=== PATIENT | male | born 1950 | race Caucasian/White ===

== ENCOUNTER 2016-06-12 08:12 | Emergency (ER) | payer OTHER ==
[~2016-06-12] VITALS: Ht 182.9 cm; Wt 131.8 kg
[~2016-06-12 08:12] MED LIST: ALBU8.5H4 IH; AMLO10TA3 PO; CHOL100094 PO; EPIN0.3P2 IJ; FENO160T14 PO; FUR20 PO; IBUP200C PO; LOSA100T29 PO; MULT-1018 PO; OMEG1CAP5 PO; PRAZ1CAP2 PO; PRE20 PO; ZIT250 PO
--- NOTE | 2016-06-12 08:22 | ED.REPORT ---
HPI-Stroke / CVA Jun 12, 2016 ED Provider: Aneudy York MD Pt is a 66 year old male with a hx of HTN, hyperlipidemia, and DM presenting to the ED complaining of sudden onset vision changes and confusion at 0755. 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 When he went to type the names into his computer, they "weren't coming up right." Associated symptoms include diaphoresis, speech changes, chills. He had clear speech but had trouble finding words. Denies numbness, weakness, change in appetite. Pt states that he feels overwhelmed due to being in the ER but is not in any pain. Pt has recent hx of diverticulitis and is on Cipro and Flagyl since 6 days ago. Nursing Notes Stated Complaint: DISORIENTED Chief Complaint: Neuro Symptoms/ Deficits Nursing Notes Reviewed: Yes ([employer], Reflect Systemss not reconciled - on cipro/flagyl) Allergies: Coded Allergies: Potassium Clavulanate (Verified Allergy, Severe, HIVES, 06/12/16) Sulfa (Sulfonamide Antibiotics) (Verified Allergy, Severe, hives, 06/12/16) amoxicillin trihydrate (Verified Allergy, Severe, HIVES, 06/12/16) Cephalosporins (Verified Allergy, Intermediate, HIVES, 06/12/16) clonidine (Verified Allergy, Mild, DIZZINESS, 06/12/16) Penicillins (Verified Allergy, Unknown, Hives, 06/12/16) Scheduled Amlodipine (Amlodipine) 10 Mg Tablet 10 MG PO DAILY (Reported) Ciprofloxacin (Cipro) 500 Mg Tablet 0 PO BID (Reported) Fenofibrate (Fenofibrate) 160 Mg Tablet 160 MG PO DAILY (Reported) Losartan Potassium (Losartan Potassium) 100 Mg Tablet 100 MG PO DAILY (Reported ) Metronidazole (Flagyl) 500 Mg Tablet 0 PO Q8H (Reported) Scheduled PRN Albuterol HFA (Albuterol HFA) 8.5 Gm Hfa.aer.ad 1 PUFF IH Q4 PRN PRN asthma ( Reported) Epinephrine (Epipen 2-Junior) 0.3 Mg/0.3 Ml Auto.injct 0.3 MG IJ PRN For Anaphyllaxis (Reported) Miscellaneous Medications [place]-3 Fatty Acids/Fish Oil (Fish Oil 1,000 mg Capsule) 1 Each Capsule 1 EACH PO (Reported) General Time Seen by Provider: 08:16 Chief Complaint Vision, reduced, Confusion Hx Obtained From: Patient Arrived By: Walk-in Time last known well 0755 Sudden in Onset?: Yes Progression Since Onset: Resolved Severity: Current: No pain currently Severity: Maximum: No pain Recent Healthcare: No recent hospitalization, Recent doctor visit Similar Sx Previous: No Risk Factors NIH Stroke Scale Level of Consciousness: Alert and responsive (0) Ask Month & Age: Both questions right (0) 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 Nguyen Echo 04/2014: Interpretation Summary Normal sinus rhythm. Normal LV size and wall thickness. There is distal septal, mid-inferoseptal and distal inferior hypokinesis. EF is 60-65%. Stage I diastolic dysfunction. No significant valvular abnormalities. No prior study available for comparison. Past Medical History Hemmorhoids Hx of kidney stones Diet-controlled diabetes, not on any medications Reports: Asthma, Hyperlipidemia, Hypertension Past Surgical History Lithotripsy for kidney stones Family History Mother of stroke at 89 Smoking History Former Smoker Social History Other Social History: Ambulatory Status Independent Review of Systems Constitutional: Reports: Chills Skin: Reports Diaphoresis Neurologic: Reports: Confusion, Vision change, Denies: Numbness, Slurred speech, Weakness Complete sys rev & neg: except as marked. Physical Exam Initial Vital Signs Vital Signs (First) Date Time Temp Pulse Resp B/P Pulse Ox O2 Delivery O2 Flow Rate FiO2 06/12/16 08:23 35.6 80 14 185/79 96 Room Air Initial VS: Reviewed, Vital signs abnormal (HTN (+ tPA exclusion on initial BP) ) ENT: Mucous membranes moist, Conjunctiva normal, No scleral icterus Abdomen / GI: Soft, Non-tender, No guarding, No rebound, No distention Extremities: Vascular intact, Neuro intact, No swelling, No tenderness Skin: Warm, Dry, No cyanosis Psychiatric: Mood/affect normal, Behavior normal, Normal thought content General/Constitutional: Awake, Alert, No acute distress, Well appearing Head / Eyes: Atraumatic, Normocephalic, PERRL, EOMI, No nystagmus Neck: Atraumatic, Supple, Full range of motion Respiratory / Chest: Breath sounds NL, Breath sounds = bilat, No respiratory distress, No rales, No rhonchi, No wheezing Cardiovascular: Heart rate NL, Regular rhythm, Heart sounds NL, No murmurs, Peripheral circulation NL Neurologic: Oriented X3, Speech NL, No motor deficits, No sensory deficits, CN II - XII intact, Reflexes equal bilat, Cerebellar NL, Memory NL, Gait NL Interpretation & Diagnostics Interpretation & Diagnostics: MRI STROKE PROTOCOL: IMPRESSION: BRAIN MRI: 1. No acute hemorrhage or ischemia of the brain. 2. Mild chronic small vessel ischemic changes. 3. Moderate sinus disease. BRAIN MR ANGIOGRAM: The arteries of the [place] of Mahmood are patent and within normal limits without aneurysm or occlusion. NECK MR ANGIOGRAM: No significant atherosclerosis is evident involving the carotid arteries or vertebral arteries. However, the left vertebral artery origin is not adequately seen. There are no occlusions or high-grade areas of narrowing. The estimate of stenosis included in the report of the imaging study was calculated using the NASCET method Dictated by: Matheus Dugan M.D. on 06/12/2016 at 11:47 Lab Results Interpretation Result Diagram: 06/12/16 0819 06/12/16 0819 Test 06/12/16 08:19 06/12/16 10:42 White Blood Count 2.4th/mm3 (3.8-10.1) Red Blood Count 3.87mil/mm3 (4.40-5.80) Hemoglobin 12.1g/dL (13.8-17.2) Hematocrit 35.4% (41.0-50.0) Mean Corpuscular Volume 91.5fL (81-100) Mean Corpuscular Hemoglobin 31.3pg (27.0-35.0) Mean Corpuscular Hemoglobin Concent 34.2% (32.0-37.0) Red Cell Distribution Width 13.5% (12.3-15.4) Platelet Count 150bil/L (150-400) Neutrophils (%) (Auto) 52.0% (40-74) Lymphocytes (%) (Auto) 26.4% (14-46) Monocytes (%) (Auto) 16.5% (4-12) Eosinophils (%) (Auto) 3.7% (0-5) Basophils (%) (Auto) 0.8% (0-3) Prothrombin Time 11.7sec (8.1-12.5) Prothromb Time International Ratio 1.09ratio Activated Partial Thromboplast Time 27.8sec (22.8-33.0) Sodium Level 139mEq/L (134-144) Potassium Level 3.9mEq/L (3.5-5.2) Chloride Level 101mEq/L (97-108) Carbon Dioxide Level 21mmol/L (18-29) Blood Urea Nitrogen 13mg/dL (8-27) Creatinine 0.84mg/dL (0.76-1.27) Estimat Glomerular Filtration Rate 97mL/min (>59) Glucose Level 187mg/dL (60-99) Calcium Level 9.7mg/dL (8.5-10.1) Total Bilirubin 0.9mg/dL (0.0-1.2) Aspartate Amino Transf (AST/SGOT) 53U/L (0-50) Alanine Aminotransferase (ALT/SGPT) 51U/L (0-44) Alkaline Phosphatase 89U/L (25-160) Troponin T < 0.010ug/L (0.0-0.011) Total Protein 7.4g/dL (6.4-8.4) Albumin 4.2g/dL (3.4-5.0) Urine Color Yellow (YELLOW) Urine Appearance Clear (CLEAR,HAZY) Urine pH 5.5 (5.0-8.0) Urine Specific [place] 1.020 (1.003-1.035) Urine Protein Negativemg/dL (NEG,TRACE) Urine Glucose (UA) Negativemg/dL (NEGATIVE) Urine Ketones Negativemg/dL (NEGATIVE) Urine Occult Blood Negative (NEGATIVE) Urine Nitrite Negative (NEGATIVE) Urine Bilirubin Negative (NEGATIVE) Urine Urobilinogen Normalmg/dL (NORMAL) Urine Leukocyte Esterase Negative (NEGATIVE) Urine RBC 0-2/hpf (0-2) Urine WBC 0-5/hpf (0-5) Urine Epithelial Cells Occasional/hpf (NONE-MOD) Urine Crystals None seen (NONE SEEN) Urine Bacteria Few/hpf (NONE-FEW) Urine Hyaline Casts Rare/lpf (NONE) Urine Granular Casts None seen (NONE SEEN) Urine Waxy Casts None seen (NONE SEEN) Urine Red Blood Cell Casts None seen (NONE SEEN) Urine White Blood Cell Casts None seen (NONE SEEN) Urine Mucus Present (None Seen) Urine Trichomonas None seen (NONE SEEN) Urine Yeast None (NONE SEEN) Urinalysis Comment None Urine Culture Reflexed Not indicated Lab Results Interpretation: CBC nonspecific leukopenia CMP normal ECG Interpretation ECG Interpretation: No clear acute ischemic changes. Non specific intraventricular conduction delay. No change from 2015. Time: 08:49 Interpreted by: ED physician Normal ECG Interpretation: Normal rate (62), Normal sinus rhythm X-Ray Chest Interpretation Chest Xray Interpretation: IMPRESSION: No acute cardiopulmonary disease. Dictated by: Gary Barnes [facility] Interpreted: Sondra Taylor MD on 06/12/2016 at 9:19 View: Portable, 1 view Interpretation / Wet Read by: Interpret - Radiologist CT Head Interpretation IMPRESSION: 1. No acute intracranial disease process. 2. Findings telephoned to Dr. Aneudy York on 06/12/2016 at 0830 hours. This study fulfills neurological imaging criteria for inclusion or exclusion of acute stroke therapies based on available published neurological guidelines. Dictated by: Jocelyn Fajardo MD, PhD on 06/12/2016 at 8:29 Interpretation / Wet Read by: Interpret - Radiologist Re-Eval/Medical Decision Med Decision/Clinical Course This is a 66-year-old male with a history of high blood pressure and diet- controlled diabetes who had sudden onset of not feeling well at around 7:55 AM. It sounds like he had some mild visual disturbance, and possibly mild expressive aphasia. He knew something was wrong, and came to the Emergency department. He works in the hospital. He called his and came here. Symptoms have now resolved, but he is concerned for a stroke. He denies a sense of numbness or weakness in arms or legs or face-his confirms that he had some sort of speech difficulties along with this. On initial exam his blood pressures 185, but his NIH stroke scale is 0 no hard findings of of a stroke at this time. His speech is normal, he has no field cuts that I can elicit, and he is asymptomatic. He is not a candidate for TPA as a result of resolution, and uncertain diagnosis. Certainly his symptoms are concerning for the possibility of a stroke. He underwent a noncontrast CT scan and this was negative. He did receive aspirin, fever try to sort out if this may been a TIA undergoing an MRI MRA. He is in a sinus rhythm. EKG is n without dysrhythmia, blood work is normal. Hypertension improved without intervention. This date I am not finding a hard or definitive cause. There is no findings of a CVA, TIA is in the differential with reassuring imaging. I contacted the PCPs office to facilitate follow-up. Patient's discharged on aspirin therapy, and return precautions are reviewed. He is discharged asymptomatic in good condition. Source of Hx: Old records Re-Evaluation/Progress #1: Time of Eval: 08:23 Patient Status: Condition improved Re-Evaluation/Progress Note: Pt going to CT. Re-Evaluation/Progress #2: Time of Eval: 08:34 Patient Status: Condition improved Re-Evaluation/Progress Note: Pt symptoms resolved. Re-Evaluation/Progress #3: Time of Eval: 12:35 Patient Status: Condition improved Re-Evaluation/Progress Note: Pt just returned from MRI. Re-Evaluation/Progress #4: Time of Eval: 13:06 Patient Status: Condition improved Re-Evaluation/Progress Note: Discussed MRI results and plan for discharge. Pt understands and agrees with plan. Consultation #1: Call Returned at: 09:00 Note: Speech therapy saw patient and is cleared patient to eat and drink Consultation #2: Referral / Consult Name: Patricia Nguyen MD Consulted With: Primary care physician Call Returned at: 13:26 Lav Crewman: Agrees with plan Note: Discussed the pt's condition with a physician in Dr. Nguyen's practice. They agree with the plan. Differential Diagnosis: Negative: Lomas's Palsy, Cerebellar hemorrhage, Closed head injury, Hepatic encephalopathy, Hyperglycemia, Hypoglycemia, Intoxication, alcohol, Meningitis, Seizure disorder, Subarachnoid hemorrhage, Subdural hemorrhage Counseled Regarding: Diagnosis, Lab results, Need for follow-up, When/why to return to ED Patient Discharge & Departure Impression: Primary Impression: Transient neurological symptoms Discharge Condition All VS Reviewed: Yes Condition: Improved Additional Instructions: 1. Definitive for dangerous cause of the transient neurologic symptoms you experienced today was not identified. MRI was negative for any signs of a stroke. (As discussed, even with TIAs, with short duration symptoms have clinically resolved, MRI is often positive these days.) 2. Continue low dose aspirin 81mg daily. 3. Continue to work with Dr. Nguyen, blood pressure management and control of the diabetes. 4. Activities as tolerate.d 5. Return if symptoms re-occur or you have new or worsening symptoms. Referrals: Patricia Nguyen MD (PCP) Sarahibe Attestation Portions of this note were transcribed by Tatiana Coe. I, Dr. York personally performed the history, physical exam and medical decision-making; I reviewed and confirmed the accuracy of the information in the transcribed note. Signed by: Jack Recio, 06/12/2016 at 1332. copies to: Patricia Nguyen MD, Matthew F MD Jun 12, 2016 08:22 TATIANA COE Jun 12, 2016 08:34
[2016-06-12 08:23] VITALS: BP 185/79; PULSE 80; RESP 14; O2SAT 96
[2016-06-12 08:28] VITALS: BP 144/71; PULSE 73; RESP 28; O2SAT 99
[2016-06-12 08:29] LABS: BASOPHILS % (AUTO) 0.8 % (0-3); EOSINOPHILS % (AUTO) 3.7 % (0-5); MONOCYTES % (AUTO) 16.5 % (4-12); Mean Corpuscular Hemoglobin 31.3 pg (27.0-35.0); Mean Corpuscular Volume 91.5 fL (81-100); Platelet Count 150 bil/L (150-400)
--- NOTE | 2016-06-12 08:35 | DRSVH ---
PROCEDURE: CT BRAIN (TPA) ([id number]) INDICATIONS: Stroke, left visual disturbance. TECHNIQUE: Noncontrast 4.5 mm thick angled axial sections acquired from the foramen magnum to the vertex, with c oronal reformats. COMPARISON: None. FINDINGS: Image quality: Excellent. CSF spaces: Basal cisterns are patent. No extra-axial fluid collections. The ventricles are symmet matthew in size and shape. Brain: No intracranial bleeds or masses. There is cerebral volume loss for age, with resultant vent ricular and sulcal prominence. There are periventricular and deep white matter chronic small vessel ischemic changes. There is intracranial internal carotid artery and vertebral artery atherosclerosis . Skull and face: Calvarium and visualized facial bones appear intact, without suspicious lesions. Sinuses: Mucosal thickening noted in the maxillary sinuses bilaterally left greater than right mastoi ds are clear. IMPRESSION: 1. No acute intracranial disease process. 2. Findings telephoned to Dr. Aneudy York on 06/12/2016 at 0830 hours. This study fulfills neurological imaging criteria for inclusion or exclusion of acute stroke therapie s based on available published neurological guidelines. Dictated by: Jocelyn Fajardo MD, PhD on 06/12/2016 at 8:29 Approved by: Jocelyn Fajardo MD, PhD on 06/12/2016 at 8:33
[2016-06-12 08:47] LABS: INR 1.09 ratio
[2016-06-12] MEDS ORDERED: CIPR-231 PO (08:54)
[2016-06-12] MEDS ORDERED: METR500T PO (08:54)
[2016-06-12 08:55] LABS: TROPONIN T < 0.010 ug/L (0.0-0.011)
--- NOTE | 2016-06-12 09:20 | DRSVH ---
PROCEDURE: X-RAY CHEST ONE VIEW, PORTABLE ([id number]) INDICATIONS: CEREBRO VASCULAR ACCIDENT TECHNIQUE: One view of the chest was acquired. COMPARISON: [facility], CR, XR CHEST 1VW (PORTABLE), 11/15/2015, 19:16. FINDINGS: Surgical changes and devices: None. Lungs and pleura: No pleural effusions or pneumothorax. Elevated right hemidiaphragm with scarring versus right basilar atelectasis is unchanged. Mediastinum: Mediastinal contours appear normal. Heart size is normal. Bones and chest wall: No suspicious bony lesions. Overlying soft tissues appear unremarkable. IMPRESSION: No acute cardiopulmonary disease. Dictated by: Gary ZHANG Interpreted: Sondra Taylor MD on 06/12/2016 at 9:19 Transcribed by: KELIN on 06/12/2016 at 9:20 Approved by: Sondra Taylor M.D. on 06/14/2016 at 9:27
[2016-06-12 10:13] VITALS: BP 145/72; PULSE 56; RESP 19; O2SAT 98
[2016-06-12 11:07] LABS: APPEARANCE,URINE CLEAR (CLEAR,HAZY); COLOR,URINE YELLOW (YELLOW); OCCULT BLOOD,URINE NEGATIVE (NEGATIVE); PH,URINE 5.5 (5.0-8.0); UROBILINOGEN,URINE NORMAL (NORMAL)
--- NOTE | 2016-06-12 12:55 | DRSVH ---
PROCEDURE: MRI STROKE PROTOCOL ([id number]) Pre- and post-contrast brain MRI, non-contrast brain MR angiogram, pre- and postcontrast neck MR jairo ogram INDICATIONS: expressive aphasia TECHNIQUE: Brain: Noncontrast axial T1 spin echo, axial T2 fast spin echo, sagittal and axial FLAIR, coronal T2 fast spin echo, axial gradient echo, axial diffusion and ADC through the brain. After the administr ation of contrast, axial 3D VIBE of the cranial vasculature and brain. Brain MRA: Non-contrast 3-D time of flight MR angiogram, with multiple vdeczjy-fuwmtfihe-muesfokqzg (MIP) reformats performed. Neck MRA: Axial and sagittal TruFISP through the neck. Coronal dynamic MR angiogram during administ ration of contrast in the arterial and venous phases, with 3-dimenstional cknojcx-upzrnblvk-kxivplfmd n (MIP) reformats constructed from subtraction images. COMPARISON: [facility], CT, BRAIN (TPA), 06/12/2016, 8:26. [facility], CT, C T ANGIO CHEST PE, 11/15/2015, 20:17. FINDINGS: Image quality: Excellent. BRAIN: CSF spaces: Ventricles are normal in size and shape. Basal cisterns are patent. No extra-axial flu id collections. Brain: No intracranial bleeds or mass effects. Mckenna-white matter interface is normal. The small sc attered foci of increased flair signal are identified within the deep white matter and periventricula r white matter of the supratentorial brain. Diffusion weighted images show no acute ischemic insults . Brainstem appears normal. Normal intravascular flow voids are present. No abnormal intracranial enhancement. Skull and face: Calvarial marrow signal is normal. Orbits appear normal. Sinuses: Moderate mucosal thickening is noted involving the maxillary sinuses, sphenoid air cells, an d ethmoid air cells. The mastoid air cells are relatively clear. No air-fluid levels are evident. BRAIN MR ANGIOGRAM: Anterior circulation: Intracranial internal carotid arteries are normal in size and enhancement. Th e flow within the paired anterior cerebral arteries is normal and symmetric. Fluid to the left anter ior cerebral artery is through the anterior communicating artery. The flow within the middle cerebra l arteries is normal and symmetric. The anterior communicating artery is seen. No stenoses, occlusi ons, or aneurysms. Posterior circulation: The visualized portions of the vertebral arteries demonstrate normal caliber, and join to form a normal appearing basilar artery. The flow within the posterior cerebral arteries is normal and symmetric. No stenoses, occlusions, or aneurysms. NECK MR ANGIOGRAM: Carotids: Great vessels demonstrate a conventional anatomy as they arise from the aortic arch. The origins of the common carotid arteries appear patent. The calibers and courses of both common caroti d arteries are normal. The bifurcation regions appear normal bilaterally. The internal carotid keyanna wilbert demonstrate normal course and caliber. Posterior circulation: The origin of the right vertebral artery is patent and otherwise unremarkable . The origin of the left vertebral artery is not adequately seen, which may be related to respirator y motion artifact at the origin site. However, no complete occlusion is evident. More superior port ions of both vertebral arteries demonstrate normal course and caliber, and join to form a normal appe aring basilar artery. Miscellaneous: Subclavian arteries appear patent. Pre-contrast images through the neck show no soft tissue abnormalities. IMPRESSION: BRAIN MRI: 1. No acute hemorrhage or ischemia of the brain. 2. Mild chronic small vessel ischemic changes. 3. Moderate sinus disease. BRAIN MR ANGIOGRAM: The arteries of the [place] of [place]mood are patent and within normal limits without aneurysm or occlusion. NECK MR ANGIOGRAM: No significant atherosclerosis is evident involving the carotid arteries or verteb ral arteries. However, the left vertebral artery origin is not adequately seen. There are no occlus ions or high-grade areas of narrowing. The estimate of stenosis included in the report of the imaging study was calculated using the NASCET method Dictated by: Matheus Dugan M.D. on 06/12/2016 at 11:47 Approved by: Matheus Dugan M.D. on 06/12/2016 at 11:54
[2016-06-12 13:18] VITALS: BP 157/80; PULSE 59; RESP 16; O2SAT 96
--- NOTE | 2016-06-12 13:56 | NUR ---
Evaluation completed. Please go to "Notes" then click on "Assessments and Notes" (bottom left corner of screen). Then select appropriate discipline tab on top of screen.
== END 2016-06-12 13:37 | disposition home or self-care (01) ==
LOC: SED 08:12
DX: R29.818 Other symptoms and signs involving the nervous system (principal); I10 Essential (primary) hypertension; E78.5 Hyperlipidemia, unspecified; E11.9 Type 2 diabetes mellitus without complications; J45.909 Unspecified asthma, uncomplicated; Z87.891 Personal history of nicotine dependence; Z88.0 Allergy status to penicillin; Z88.2 Allergy status to sulfonamides; Z88.1 Allergy status to other antibiotic agents; Z88.8 Allergy status to other drugs, medicaments and biological substances
CPT/HCPCS: 36415; 70450; 70549; 70553; 71010; 80053; 81000; 82948; 84484; 85025; 85610; 85730; 92610; 93005; 99285; A9585

== ENCOUNTER 2016-08-27 11:05 | Day surgery (SDC) | payer OTHER ==
[~2016-08-27] VITALS: Ht 182.9 cm; Wt 133.8 kg
[~2016-08-27 11:05] MED LIST changes: +ALBU8.5H2 INHALATION; -ALBU8.5H4 IH; +BENZ100C8 PO; -CHOL100094 PO; +FLUT16SP NS; -IBUP200C PO; +OMEG500C PO; -PRAZ1CAP2 PO; -PRE20 PO; -ZIT250 PO
[2016-08-27 11:22] VITALS: BP 169/82; PULSE 76; RESP 16; O2SAT 98
--- NOTE | 2016-08-27 11:40 | PCM.HPANE ---
Patient Data Surgeon Admitting Provider: Attending Provider:Elizabeth Booker MD Primary Care Physician:Patricia Nguyen MD Other Provider:Cesilia Teagueingham Anesthesia Reason for Visit Diverticulitis Ht/WT & BMI Height (Feet): 6 Height (Inches): 0 Weight (Kilograms): 133.8 Body Mass Index 39.00 Allergies Coded Allergies: Potassium Clavulanate (Verified Allergy, Severe, HIVES, 06/12/16) Sulfa (Sulfonamide Antibiotics) (Verified Allergy, Severe, hives, 06/12/16) amoxicillin trihydrate (Verified Allergy, Severe, HIVES, 06/12/16) Cephalosporins (Verified Allergy, Intermediate, HIVES, 06/12/16) clonidine (Verified Allergy, Mild, DIZZINESS, 06/12/16) Penicillins (Verified Allergy, Unknown, Hives, 06/12/16) Past Anesthesia History Anesthesia History: Denies:: Abnormal Airway, Anesthesia Reactions, Difficult Intubation, Fam Anesthesia Reaction, Fam Malignant Hypertherm, Malignant Hyperthermia Diabetes History Hx Diabetes?: No MRSA MRSA: No Medications Hypertension Medication: Yes Home Meds Incl Beta Jeannie: No Reported Medications Multivitamin (Multi Vitamin Daily)1 Each Tablet1 Each PO DAILY 30 Days Ref 0 08/26/16 Furosemide 20 Mg Tab20 Mg PO DAILY 30 Days Ref 0 08/26/16 Fluticasone Propionate (Fluticasone Propionate Nasal)16 Gm [place].susp1 [place] NS BID #16 GM Ref 0 08/26/16 [place]-3 Fatty Acids (Fish Oil)500 Mg Capsule.dr500 Mg PO 08/26/16 Albuterol HFA (Proair HFA)8.5 Gm Hfa.aer.ad2 Puffs INHALATION Q4H #1 INHALER 08/26/16 Losartan Potassium 100 Mg Kovwga563 Mg PO DAILY 04/30/14 [place]-3 Fatty Acids/Fish Oil (Fish Oil 1,000 mg Capsule)1 Each Capsule1 Each PO 04/30/14 Fenofibrate 160 Mg Weclfe074 Mg PO DAILY 30 Days Ref 0 04/30/14 Epinephrine (Epipen 2-Junior)0.3 Mg/0.3 Ml Auto.injct0.3 Mg IJ PRN For Anaphyllaxis 04/30/14 Amlodipine 10 Mg Uwrrpp34 Mg PO DAILY 30 Days Ref 0 04/30/14 Discontinued Reported Medications Benzonatate 100 Mg CapsuleUnknown Dose PO DAILY 08/26/16 Metronidazole (Flagyl)500 Mg Tablet Po Q8h 06/12/16 Ciprofloxacin (Cipro)500 Mg Tablet PO BID Ref 0 06/12/16 Albuterol HFA 8.5 Gm Hfa.aer.ad1 Puff IH Q4 PRN asthma #1 INHALER Ref 0 04/30/14 History History of ENT Problems?: No HEENT History: Positive for:: Hearing Problem Denies:: Abnormal Airway Difficult Intubation Dysphagia Denture Type: None Teeth Condition: Within Normal Limits Other HEENT Pertinent History: ONLY R HEARING AIDE IN Hx of Heart Problems?: Yes Cardiovascular History: Positive for:: Hypertension Denies:: AICD Atrial Fibrillation Chest Pain Congestive Heart Failure Pacemaker Valvular Heart Disease Hx of Respiratory Problem?: Yes Respiratory History: Positive for:: Asthma Denies:: COPD Cough Hemoptysis Pneumonia Tuberculosis Hx Neurologic Problems?: No Neurological History: Denies:: CVA Hx of GI Problems?: Yes Hx of Problems?: No Genitourinary History: Positive for:: Kidney Stones Male Hx: Denies:: Prostate Problems Scrotal Mass Testicular Surgery Hx Musculoskeletal Problems?: Yes Musculoskeletal History: Positive for:: Back Injury Denies:: Fibromyalgia Joint Replacement Hx of Psycho/Social Problems?: No Psycho Social History: Denies:: Anxiety Hx Depression Hx Surgeries?: Yes (SINUS, HYDROCELE) Hx Any Other Health Problems?: Yes History Blood Transfusions: Denies:: Blood Transfusions Hx Diabetes: No Hx Alcohol Use: NoHx Substance Use: No Smoking Status: Former Smoker Have You Smoked inLast 12 mo: No Stop/Bang Treated for Sleep Apnea?: Yes Do You Have a CPAP Machine?: Yes (COMPLIANT W/ NIGHTLY USE) JT Risk Assessment: High Risk, =/>3 Yes Risk Assessment Category Category 1A: Patient has history of documented sleep apnea, and HAS NOT received any narcotic, sedative or anesthesia administration during this stay. Category 1B: Patient has history of documented sleep apnea, and HAS received any narcotic , sedative or anesthesia administration during this stay Category 2: Patient has SUSPECTED Obstructive Sleep Apnea, and HAS received any narcotic , sedative or anesthesia administration during this stay. Category 3: Patient has SUSPECTED Obstructive Sleep Apnea and HAS NOT received narcotic, sedative or anesthesia administration during this stay. Category 4: Outpatient in Procedural Areas with known sleep apnea or who screen positive for High Risk via the STOP/BANG questionnaire. Exam Exam Vital Signs Vital Signs Date Time Temp Pulse Resp B/P Pulse Ox O2 Delivery O2 Flow Rate FiO2 08/27/16 11:22 76 16 169/82 98 Room Air General Appearance: Oriented X3 HEENT/AIRWAY: MP 2 Lungs: Normal Air Movement Heart: Regular Rate/Rhythm Plan Impression Patient chart reviewed, patient interviewed and anesthestic plan with risks, benefits, and alternatives discussed, and informed consent obtained. ASA Physical Status: ASA3 Severe Disease Anesthetic Plan: MAC Bene/Risks/Altern/Consents: Yes HP Complete Prior to Induction: Yes Joel Mason MD Aug 27, 2016 11:40
[2016-08-27] MEDS ORDERED: Lactated Ringer's 1,000 ML IV SCH (11:41)
[2016-08-27] MEDS ORDERED: Ondansetron 2 mg/mL 2 mL Inj IVPUSH PRN (11:45)
[2016-08-27] MEDS ORDERED: MetoCLOpramide 5 mg/mL 2 mL Inj IVPUSH PRN (11:45)
[2016-08-27] MEDS: Lactated Ringer's 1,000 ML IV SCH ×2 (11:51→12:35)
[2016-08-27 12:48] VITALS: BP 142/69; PULSE 70; RESP 16; O2SAT 95
[2016-08-27 13:01] VITALS: BP 138/71; PULSE 63; RESP 16; O2SAT 96
[2016-08-27 13:03] VITALS: BP 147/74; PULSE 67; RESP 16; O2SAT 96
--- NOTE | 2016-08-27 15:10 | ENDO ---
[address] [address] ENDOSCOPY PROCEDURE PATIENT: LIZBETH RODRIGUEZ : 1950 MR#: [id number] ADMIT: 08/27/2016 JOB ID: [id number] DATE: 08/27/2016 PREPROCEDURAL DIAGNOSIS: Colon cancer screening; family history of colon cancer. POSTPROCEDURAL DIAGNOSIS: Colon cancer screening; family history of colon cancer; cecal polyp x2. PROCEDURE PERFORMED: Colonoscopy. SURGEON: Elizabeth Booker MD HISTORY OF PRESENT ILLNESS: This is a 66-year-old man who has a family history of colon cancer in his father and his grandfather. His previous colonoscopy was in 2010 and he had one small benign polyp at that time and pancolonic diverticulosis. FINDINGS: 1. Pancolonic diverticulosis. 2. Cecal polyp x2, removed with cold forceps biopsies. INSTRUMENT: Olympus PCF H 180 AL. ANESTHESIA: Monitored anesthesia care. WITHDRAWAL TIME: 23 minutes. PREPARATION QUALITY: Fair. With the irrigation and suctioning, the visualization was adequate. DESCRIPTION OF PROCEDURE: The patient was brought to the endoscopy suite and placed in the left decubitus position. Moderate anesthesia was induced. A digital rectal examination was performed and was normal. The colonoscope was advanced to the cecum and into the terminal ileum. The distal 20 cm of terminal ileum was cannulated, and was normal. There were two 5 mm polyps in the cecum, each was removed with cold forceps biopsies and sent for permanent pathology as a single specimen. Because the prep was fair, a fair amount of irrigation and suctioning was required for adequate visualization of the mucosa. There were scattered diverticula throughout the colon. There were no other polyps. There were no masses, strictures, or other mucosal abnormalities. A retroflexed examination of the rectum revealed internal hemorrhoids. The colonoscope was withdrawn and the patient tolerated the procedure well. COMPLICATIONS: None. ESTIMATED BLOOD LOSS: None. SPECIMENS: Cecal polyps x2.
--- NOTE | 2016-08-27 15:20 | PCM.ANEP1 ---
Post Anesthesia PACU Phase 1 Assessment Vital Signs Vital Signs Date Time Temp Pulse Resp B/P Pulse Ox O2 Delivery O2 Flow Rate FiO2 08/27/16 13:03 67 16 147/74 96 Room Air 08/27/16 13:01 63 16 138/71 96 Room Air 08/27/16 12:48 70 16 142/69 95 Room Air 08/27/16 11:22 76 16 169/82 98 Room Air Anesthetic Administered: MAC Level of Alertness: Awake, talking Pain: No Nausea or Vomiting: No CV Function & Hydration Stable: No Airway Device: Lungs: Normal Air Movement PACU Phase 2 Assessment Patient Instructions Provided: N/A Joel Mason MD Aug 27, 2016 15:20
--- NOTE | 2016-08-28 15:38 | PATH ---
SURGICAL PATHOLOGY Attending Physician:Elizabeth Booker MD CASE STATUS: Signed Out PATIENT NAME: LIZBETH RODRIGUEZ PID: [id number] : 1950 DATE COLLECTED:08/27/2016 19:59 SPECIMEN: Colon, Polyp CLINICAL HISTORY: 1). CECAL POLYP FINAL DIAGNOSIS: 1.CECAL POLYP: TUBULAR ADENOMA. ICD10 D12.0 GROSS DESCRIPTION: The specimen is received in one formalin filled container labeled with the patient's name, sublabeled "cecal polyp" and consists of 2 portions of tissue which aggregate to 0.4 x 0.4 x 0.3 CM. The specimen is entirely submitted in one cassette. 08/27/2016DC MICRO DESCRIPTION: See diagnosis. ICD-9 CODES: CPT CODES: 1: 20320 Electronically Signed Out Soni Decker MD [facility], [place] [address] Technical component performed at [facility], [address] [place] [address] [address], [place], [address]
== END 2016-08-27 23:59 | disposition home or self-care (01) ==
LOC: END 11:05
PROVIDERS: ATTEND Surgery
DX: Z12.11 Encounter for screening for malignant neoplasm of colon (principal); D12.0 Benign neoplasm of cecum; K57.30 Diverticulosis of large intestine without perforation or abscess without bleeding; K64.8 Other hemorrhoids; Z80.0 Family history of malignant neoplasm of digestive organs; E78.5 Hyperlipidemia, unspecified; I10 Essential (primary) hypertension; E11.9 Type 2 diabetes mellitus without complications; G47.33 Obstructive sleep apnea (adult) (pediatric); J45.909 Unspecified asthma, uncomplicated; Z87.891 Personal history of nicotine dependence; Z79.51 Long term (current) use of inhaled steroids
CPT/HCPCS: 45380; J7120